=== PATIENT | male | born 1940 | race Caucasian/White ===

== ENCOUNTER 2021-05-26 11:00 | Outpatient (CLI) | payer MEDICARE, BC, SELFPAY ==
[2021-05-26 13:33] LABS: SARS-CoV-2 Ag Positive (Negative)
== END 2021-05-26 11:01 | disposition home or self-care (01) ==
LOC: CHSLAB 11:06
PROVIDERS: PCP Family Medicine; Visit Provider Family Medicine
DX: U07.1 COVID-19 (principal)
CPT/HCPCS: 87426; C9803